=== PATIENT | female | born 1995 | race Caucasian/White ===

== ENCOUNTER 2016-11-24 19:51 | Emergency (ER) | payer BC ==
[2016-11-24] MEDS ORDERED: Adenosine* 3 MG/ML VIAL ONE (20:05)
[2016-11-24] MEDS ORDERED: NS 0.9% 1000 ML* 1,000 ML IV ONE (20:23)
[2016-11-24] MEDS ORDERED: Adenosine* 3 MG/ML VIAL IV PUSH ONE (20:23)
[2016-11-24 20:26] VITALS: BP 131/81
[2016-11-24 20:30] LABS: Hematocrit 44 % (35-47); Hemoglobin 14.4 g/dl (12.0-16.0); Mean Corpuscular HGB Conc 33 g/dl (31-36); Mean Corpuscular Hemoglobin 27 pg (27-31); Mean Corpuscular Volume 84 fL (80-97); Mean Platelet Volume 11 um3 (7.4-10.4); Red Blood Count 5.26 10^6/ul (4.0-5.4); Red Cell Distribution Width 14 % (10.5-15); White Blood Count 7.3 10^3/ul (3.5-10.8)
--- NOTE | 2016-11-24 20:34 | ED ---
Palpitations / Dysrhythmia - HPI Summary HPI Summary: Patient presents for evaluation of palpitations while at the gym. Patient was feeling well, finishing the first mile of her daily run on the treadmill when she began experiencing palpitations and shortness of breath. This has happened before and been evaluated by her Decontaminator, Arcelia Campa MD of [place], [place] and was directed to valsalva while blowing into a syringe. Not allev by blowing into the syringe. Does currently take OCP. Denies any chest pain, systemic symptoms, prolonged trips. - History of Current Complaint Chief Complaint: EDDysrhythmPalp Time Seen by Provider: 11/24/16 19:55 Hx Obtained From: Patient, Family/Benefits Specialist Recruiter - Sister Onset/Duration: Sudden Onset, Lasting Minutes Severity Initially: Moderate Severity Currently: Moderate Character: Fast Aggravating: Exertion Alleviating: Nothing Associated Signs & Symptoms: Lightheadedness Related History: Similar Episode/Dx as - SVT - Allergy/Home Medications Allergies/Adverse Reactions: Allergies Allergy/AdvReac Type Severity Reaction Status Date / Time Penicillins [PCN] Allergy Unknown Verified 07/15/16 21:36 Reaction Details PMH/Surg Hx/FS Hx/Imm Hx Previously Healthy: Yes Cardiovascular History: Reports: Other Cardiovascular Problems/Disorders - hx palpitations Infectious Disease History: No Infectious Disease History: Denies: Traveled Outside the [place] in Last 30 Days - Social History Alcohol Use: Rare Hx Substance Use: No Substance Use Type: Reports: None Hx Tobacco Use: No Smoking Status (MU): Never Smoked Tobacco Review of Systems Positive: Palpitations. Negative: Chest Pain Positive: Shortness Of Breath. Negative: Cough All Other Systems Reviewed And Are Negative: Yes Physical Exam Triage Information Reviewed: Yes Vital Signs On Initial Exam: Initial Vitals Pulse Pulse Ox 203 98 11/24/16 19:55 11/24/16 19:55 Vital Signs Reviewed: Yes Appearance: Positive: Well-Appearing, No Pain Distress, Well-Nourished Skin: Positive: Warm, Skin Color Reflects Adequate Perfusion, Dry Neck: Positive: Supple, Nontender, No Lymphadenopathy, Other: - No carotid bruits Respiratory/Lung Sounds: Positive: Clear to Auscultation, Breath Sounds Present Cardiovascular: Positive: Pulses are Symmetrical in both Upper and Lower Extremities, Tachycardia. Negative: Leg Edema Left, Leg Edema Right Abdomen Description: Positive: Nontender, No Organomegaly, Soft Musculoskeletal: Positive: Normal, Strength/ROM Intact Neurological: Positive: Normal, Sensory/Motor Intact, Alert, Oriented to Person Place, Time, CN Intact II-III, Reflexes Intact, Normal Gait. Negative: Cerebellar Dysfunction - [place] Coma Scale Coma Scale Total: 15 Diagnostics - Vital Signs Vital Signs Temp Pulse Resp BP Pulse Ox 11/24/16 20:23 97 20 100 11/24/16 20:00 98.2 F 198 16 131/81 100 11/24/16 19:55 203 98 - Laboratory Result Diagrams: 11/24/16 20:00 11/24/16 20:00 Lab Statement: Any lab studies that have been ordered have been reviewed, and results considered in the medical decision making process. - Ultrasound No standard instances Ultrasound Interpretation Completed By: ED Physician - LIMITED TRANSTHORACIC ECHOCARDIOGRAPHY: No pericardial effusion, regional wall motion abnormality, significant murmur. IVC is less than 2 cm with greater than 50% respirophasic variation. RV:L! in apical 4 view with moderate dilation. Bashir Heard MD, RDMS RDCS. - EKG No standard instances Cardiac Rate: Tachycardia EKG Rhythm: SVT - 11/24/2016 19:52 pm: HR 190 ST Segment: Normal Ectopy: None - Additional Comments Diagnostic Additional Comments: 11/24/2016 20:03: HR 128 normal axis, sinus tachycardia, normal VA/QRS/QTC. Immediately after 12 mg of IV adenosine. 11/24/2016 20:04: HR 106 normal axis, sinus tachycardia, normal VA/QRS/QTC. 1 minute after 12 mg of IV Adenosine. 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 She has been advised to seek transitional care from her pediatric urologist to an adult motorcycle designer. [place] and will send D dimer. CXR and EKG. Nontoxic appearing. Provider Diagnoses: Supraventricular tachycardia - Physician Notifications Discussed Care Of Patient With: Dr. Hendricks did not feel as if patient needed to avoid activity, despite exertional SVT and palpitations. Discharge - Discharge Plan Condition: Improved Disposition: HOME Patient Education Materials: Supraventricular Tachycardia (ED) Referrals: [facility] [Primary Care Provider] - Mj Huber MD [Medical Doctor] - Cheryl Alicia MD [Medical Doctor] -
[2016-11-24 20:42] LABS: BUN/Creatinine Ratio 10.3 (8-20); Calcium 9.7 mg/dL (8.6-10.3); EGFR African American 94.2 (>60); EGFR Non-African American 73.2 (>60); Potassium 3.6 mmol/L (3.5-5.0)
--- NOTE | 2016-11-24 21:03 | RAD ---
INDICATION: Short of breath COMPARISON: None TECHNIQUE: PA and lateral dual-energy views were obtained. FINDINGS: Bones/Soft Tissues: There are no acute bony findings. Cardiomediastinal: The cardiomediastinal silhouette is normal. Lungs: There are no infiltrates. There is no pneumothorax. Pleura: There are no pleural effusions. Other: There are external pacing leads IMPRESSION: NORMAL CHEST.
== END 2016-11-24 21:44 | disposition home or self-care (01) ==
LOC: ED 19:51
DX: I47.1 Supraventricular tachycardia (principal); R00.2 Palpitations; R06.02 Shortness of breath
CPT/HCPCS: 36415; 71020; 80048; 83735; 84484; 85027; 85379; 93005; 96374; 99283; J0153